=== PATIENT | female | born 1945 | race Caucasian/White ===

== ENCOUNTER 2017-03-25 00:15 | Inpatient (IN) | payer OTHER ==
[~2017-03-25] VITALS: Ht 160 cm; Wt 73.6 kg
[~2017-03-25 00:15] MED LIST: ECO81 PO; GABAPENTIN600 M1 PO; GLIMEPIRIDE4 M1 PO; LAC PO; MACROBID100 MG PO; SIMVASTATIN80 M1 PO
[2017-03-25 01:11] LABS: BASOPHIL % 0.4 % (0-2); RED CELL DISTRIBUTION WIDTH 13.1 % (11.5-14.5)
[2017-03-25 01:12] LABS: PLATELET COUNT 446 x10^3mcL (130-400)
[2017-03-25 01:24] LABS: ALKALINE PHOSPHATASE 87 U/L (46-116); ALT/SGPT 17 U/L (14-59); AST/SGOT 28 U/L (15-37); BILIRUBIN TOTAL 0.25 mg/dL (0.20-1.00); CALCIUM 7.8 mg/dL (8.5-10.1); CHLORIDE SERUM 87 mmol/L (98-107); SODIUM SERUM 127 mmol/L (136-145); TOTAL PROTEIN, SERUM 6.4 g/dL (6.4-8.2)
[2017-03-25 01:28] LABS: CK-MB 12.2 ng/mL (0-3.6)
[2017-03-25 01:33] LABS: ALBUMIN 2.5 g/dL (3.4-5.0)
[2017-03-25 01:34] LABS: CREATININE SERUM 6.4 mg/dL (0.6-1.0); GLUCOSE SERUM 37 mg/dL (74-106)
[2017-03-25 02:37] LABS: UA SPECIFIC GRAVITY 1.025 (1.005-1.035); microscopic required? YES; urine erythrocyte 2+ (NEGATIVE)
[2017-03-25 03:07] LABS: MAGNESIUM 2.1 mg/dL (1.8-2.4)
[2017-03-25 03:13] LABS: T3 TOTAL 0.43 ng/mL
[2017-03-25 03:16] LABS: FREE T4 1.14 ng/dL (0.76-1.46); FREE THYROXINE INDEX 2.3 ug/dL (1.4-4.5); T4(THYROXINE) 5.8 ug/dL (4.7-13.3)
[2017-03-25 04:26] LABS: CHOLESTEROL/HDL RATIO 2.7; PHOSPHOROUS 10.5 mg/dL (2.5-4.9)
[2017-03-25 06:03] VITALS: BP 96/67
[2017-03-25 07:15] VITALS: BP 102/54
[2017-03-25 07:20] LABS: CALCIUM 7.4 mg/dL (8.5-10.1); CARBON DIOXIDE 16.7 mmol/L (21-32); CHLORIDE SERUM 96 mmol/L (98-107); GLUCOSE SERUM 97 mg/dL (74-106); POTASSIUM SERUM 3.9 mmol/L (3.5-5.1); SODIUM SERUM 130 mmol/L (136-145)
[2017-03-25 07:21] LABS: CREATININE SERUM 4.5 mg/dL (0.6-1.0)
[2017-03-25] MEDS ORDERED: AMBIEN5 MG PO (07:28)
[2017-03-25] MEDS ORDERED: LOSARTAN POTASS1 TA6 PO (07:29)
[2017-03-25 10:30] VITALS: BP 75/49
[2017-03-25 11:06] LABS: CALCIUM 7.6 mg/dL (8.5-10.1); CHLORIDE SERUM 99 mmol/L (98-107); CREATININE SERUM 3.6 mg/dL (0.6-1.0); GLUCOSE SERUM 70 mg/dL (74-106); POTASSIUM SERUM 3.9 mmol/L (3.5-5.1); SODIUM SERUM 133 mmol/L (136-145)
[2017-03-25 12:00] VITALS: BP 103/59
[2017-03-25 15:00] VITALS: BP 129/94
[2017-03-25 15:29] LABS: CALCIUM 7.8 mg/dL (8.5-10.1); CARBON DIOXIDE 18.2 mmol/L (21-32); CHLORIDE SERUM 100 mmol/L (98-107); CREATININE SERUM 2.8 mg/dL (0.6-1.0); GLUCOSE SERUM 167 mg/dL (74-106); POTASSIUM SERUM 3.6 mmol/L (3.5-5.1); SODIUM SERUM 134 mmol/L (136-145)
[2017-03-25 19:36] LABS: CALCIUM 7.6 mg/dL (8.5-10.1); CARBON DIOXIDE 17.8 mmol/L (21-32); CHLORIDE SERUM 98 mmol/L (98-107); CREATININE SERUM 2.5 mg/dL (0.6-1.0); POTASSIUM SERUM 3.2 mmol/L (3.5-5.1); SODIUM SERUM 127 mmol/L (136-145)
[2017-03-25 19:47] LABS: GLUCOSE SERUM 388 mg/dL (74-106)
[2017-03-25 20:00] VITALS: BP 98/53
[2017-03-25 22:53] LABS: CALCIUM 7.7 mg/dL (8.5-10.1); CARBON DIOXIDE 18.5 mmol/L (21-32); CHLORIDE SERUM 104 mmol/L (98-107); CREATININE SERUM 2.2 mg/dL (0.6-1.0); GLUCOSE SERUM 281 mg/dL (74-106); POTASSIUM SERUM 3.5 mmol/L (3.5-5.1); SODIUM SERUM 136 mmol/L (136-145)
[2017-03-26] VITALS (7 sets, daily range): BP systolic 76–132; BP diastolic 51–76; Ht 160 cm; Wt 73.6 kg
[2017-03-26 05:37] LABS: BASOPHIL % 0.3 % (0-2); PLATELET COUNT 386 x10^3mcL (130-400); RED CELL DISTRIBUTION WIDTH 13.1 % (11.5-14.5)
[2017-03-26 05:51] LABS: CALCIUM 7.7 mg/dL (8.5-10.1); CARBON DIOXIDE 21.8 mmol/L (21-32); CHLORIDE SERUM 109 mmol/L (98-107); CREATININE SERUM 1.6 mg/dL (0.6-1.0); GLUCOSE SERUM 85 mg/dL (74-106); PHOSPHOROUS 2.9 mg/dL (2.5-4.9); POTASSIUM SERUM 3.2 mmol/L (3.5-5.1); SODIUM SERUM 141 mmol/L (136-145)
[2017-03-27 05:25] VITALS: BP 138/80
[2017-03-27 07:36] LABS: BASOPHIL % 0.4 % (0-2); RED CELL DISTRIBUTION WIDTH 13.2 % (11.5-14.5)
[2017-03-27 07:50] LABS: CALCIUM 8.2 mg/dL (8.5-10.1); CARBON DIOXIDE 19.8 mmol/L (21-32); CHLORIDE SERUM 106 mmol/L (98-107); CREATININE SERUM 1.1 mg/dL (0.6-1.0); GLUCOSE SERUM 197 mg/dL (74-106); PLATELET COUNT 413 x10^3mcL (130-400); POTASSIUM SERUM 3.7 mmol/L (3.5-5.1); SODIUM SERUM 137 mmol/L (136-145)
[2017-03-27 11:00] VITALS: BP 134/75
[2017-03-27 14:40] VITALS: BP 116/56
[2017-03-27 17:38] VITALS: BP 146/59
[2017-03-27 19:25] VITALS: BP 126/67
[2017-03-27 21:41] VITALS: BP 146/62
[2017-03-28 05:32] VITALS: BP 143/83
[2017-03-28 06:37] LABS: BASOPHIL % 0.3 % (0-2); PLATELET COUNT 376 x10^3mcL (130-400); RED CELL DISTRIBUTION WIDTH 13.3 % (11.5-14.5)
[2017-03-28 06:59] LABS: CALCIUM 7.6 mg/dL (8.5-10.1); CARBON DIOXIDE 19.5 mmol/L (21-32); CHLORIDE SERUM 107 mmol/L (98-107); CREATININE SERUM 0.9 mg/dL (0.6-1.0); GLUCOSE SERUM 162 mg/dL (74-106); POTASSIUM SERUM 3.3 mmol/L (3.5-5.1); SODIUM SERUM 138 mmol/L (136-145)
[2017-03-28 09:05] VITALS: BP 121/49
[2017-03-28 13:56] VITALS: BP 131/69
[2017-03-28] MEDS ORDERED: LEVAQUIN750 MG PO (14:23)
[2017-03-28] MEDS ORDERED: LAC PO (14:24)
[2017-03-28] MEDS ORDERED: METFORMIN HCL850 MG PO (14:32)
[2017-03-28] MEDS ORDERED: ACCU-CHEK AVIV1 EAC2 MC (14:39)
[2017-03-28] MEDS ORDERED: ACCU-CHEK1 EACH MC (14:40)
[2017-03-28] MEDS ORDERED: ACCU-CHEK AVIV1 EACH MC (14:41)
[2017-03-28 15:31] VITALS: BP 131/69
== END 2017-03-28 16:28 | disposition home health service (06) | DRG 871 ==
LOC: ED 00:15 → IC 02:04 → DU 02:04 → IC 03:40 → DU 03-26 18:27
PROVIDERS: Emergency Medicine; ADMIT Family Medicine
DX: A41.9 Sepsis, unspecified organism (principal); G93.41 Metabolic encephalopathy; J96.00 Acute respiratory failure, unspecified whether with hypoxia or hypercapnia; E43 Unspecified severe protein-calorie malnutrition; N17.0 Acute kidney failure with tubular necrosis; E87.1 Hypo-osmolality and hyponatremia; N30.80 Other cystitis without hematuria; B96.1 Klebsiella pneumoniae [K. pneumoniae] as the cause of diseases classified elsewhere; R65.20 Severe sepsis without septic shock; E11.649 Type 2 diabetes mellitus with hypoglycemia without coma; E11.65 Type 2 diabetes mellitus with hyperglycemia; E11.51 Type 2 diabetes mellitus with diabetic peripheral angiopathy without gangrene; R13.10 Dysphagia, unspecified; K44.9 Diaphragmatic hernia without obstruction or gangrene; K57.90 Diverticulosis of intestine, part unspecified, without perforation or abscess without bleeding; E87.6 Hypokalemia; E83.39 Other disorders of phosphorus metabolism; F17.210 Nicotine dependence, cigarettes, uncomplicated; Z68.26 Body mass index [BMI] 26.0-26.9, adult; Z79.84 Long term (current) use of oral hypoglycemic drugs
CPT/HCPCS: 36556; 36600; 82962; 83880; 84439; 92610-GN; 94150; 97110-GP; 97116-GP; 97530-GP; J0696; J1170; J1642; J1815; J1956; J2060; J2543; J3480; J3490; J7030; J7040; J7042; J7050; J7620; J7626; Q0092; Q0163